=== PATIENT | male | born 1955 | race Caucasian/White ===

== ENCOUNTER 2019-12-27 08:26 | Outpatient (CLI) | payer SELFPAY ==
[2019-12-27 09:13] VITALS: BMI 27.6
--- NOTE | 2019-12-27 09:13 | ECG_ITS ---
NAME OF STUDY: EXERCISE SESTAMIBI STRESS TEST INDICATION: [Chest Pain] Please note that this is a electrocardiogram portion of the Treadmill sestamibi stress test. Perfusion imaging will be documented on a separate report. Data At baseline heart rate was noted to be 66 bpm. Baseline blood pressure noted to be 140/104 Patient exercised for on a 9 min on standard [facility] protocol. Maximum Heart rate achieved was 141 which was 89% of 158. Then maximum blood pressure achieved was 179/83 mmHg. Max METS 10.2 Reason for, ending this test was achieving target heart rate. Patient did not have any symptoms during this procedure Electrocardiogram Baseline normal sinus rhythm with no ST changes. Exercise EKG at peak exercise reveals normal sinus tachycardia with nonspecific ST changes . No significant cardiac arrhythmias noted. Conclusions 1. Electrocardiographic component of this cardiac stress test is negative for cardiac ischemia 2. Normal Heart rate blood pressure response 3. Please see separate report for report for the myocardial perfusion imaging Electronically Signed On 12-27-2019 11:38:59 CDT by Alix Tate [email or web address]
--- NOTE | 2019-12-27 09:14 | NMCV_ITS ---
NM arabella perf SPECT r/s* [id number] Josh Rodriguez Age: 64 Gender: M : 1955 Exam Date: 12/27/2019 09:14 Ordering Phys: Bernard Joseph MD Technologist: EVANGELIST Chaudhary Exam Location: [facility] Indications: CHEST PAIN STRESS TEST Please see separate stress test report in [facility] for full findings IMAGE PROTOCOL Rest/Stress 1 Exercise Day Radiopharmaceutical Dose (mCi) Administration Site Administered by Rest: Tc-99m 10.8 IV EVANGELIST Jones Sestamibi Stress:Tc-99m 32.5 IV EVANGELIST Jones Sestamibi Rest: 27-Dec-2019 60 Discovery 630 Stress: 27-Dec-2019 30 Discovery 630 Radiopharmaceutical was injected at 87 % maximum heart rate. Images obtained in supine and prone position. SPECT RESULTS Technical Quality: Excellent Raw Data Analysis: Normal Image Corrections: No attenuation or motion correction applied Summed Stress Score: 3 Summed Rest Score: 8 Summed Difference Score: 0 PERFUSION FINDINGS Small sized perfusion abnormality of mild severity of mid septal, apical septal, apical lateral apical inferior and apical wall on rest images with improved tracer uptake on stress images. This is suggestive of attenuation artifact. FUNCTIONAL RESULTS (calculated via Gated SPECT) Stress Image LV EF (%): 84 Stress EDV (mL):63 TID: 0.82 Stress ESV (mL):10 FUNCTIONAL FINDINGS: The left ventricle is normal in size. Transient Ischemia Dilatation of 0.82. There is hyperdynamic left ventricular global systolic function. The left ventricular ejection fraction is normal with a value of 84%. There is hyperdynamic left ventricular wall thickening. Normal end-diastolic and end-systolic volumes. IMPRESSIONS 1. Myocardial perfusion imaging is normal. Attenuation artifact noted in mid to apical septal and apical green. 2. Overall left ventricular systolic function is normal without regional wall motion abnormalities. 3. The left ventricular ejection fraction is hyperdynamic with a value of 84%. 4. Scan indicates low risk for cardiac events. Mami Jordan MD (Electronically Signed) Final Date: 28 December 2019 17:25 S
--- NOTE | 2019-12-27 10:45 | SUR.PREOP ---
Patient reports no pain or discomfort prior to the start of the procedure.
[2019-12-27 11:04] VITALS: BP 144/85; PULSE 95
== END 2019-12-27 08:27 | disposition home or self-care (01) ==
PROVIDERS: Family Provider Family Medicine; PCP Family Medicine; Visit Provider Family Medicine
DX: R07.9 Chest pain, unspecified (principal)
CPT/HCPCS: 78452; 93017; A9500

== ENCOUNTER 2020-01-07 08:02 | Outpatient (CLI) | payer SELFPAY ==
--- NOTE | 2020-01-07 08:21 | CT_ITS ---
WS: [id number] CT CHEST TECHNIQUE: Contrast enhanced CT of the chest with coronal and sagittal reformatted images. CLINICAL INFORMATION: CHEST PAIN COMPARISON: None. DLP: 797.[address] scans at [facility] use at least one of these dose optimization techniques: automat ed exposure control; mA and/or kV adjustment per patient size (includes targeted exams where dose is matched to clinical indication); or iterative reconstruction. FINDINGS: Mild chronic emphysematous changes. A few micronodular tree-in-bud opacities in the right upper lobe posteriorly and right middle lobe can be seen with infectious or inflammatory bronchiolitis. No focal pneumonia. No consolidation or pleural fluid. Normal caliber thoracic aorta. Proximal main pulmonary arteries are normal. A few tiny nodules in the right thyroid gland. No axillary lymphadenopathy. Adrenal glands are normal. Right hepatic cyst mark uring 1.[address]/CT chest w con* [id number] IMPRESSION: 1. A few tree-in-bud opacities in right upper lobe posteriorly and right middl e lobe likely inflammatory and can be seen with bronchiolitis. 2. No focal pneumonia. 3. No pleural fluid. 4. No mediastinal or hilar lymphadenopathy. 5. Right hepatic cyst measuring 1.4 CM.
[2020-01-07 09:10] LABS: Blood Urea Nitrogen 17 mg/dL (8-23); Glomerular Filtration Rate 85.5 mL/min (90-130)
[2020-01-07] MEDS: iohexol 300 mg/mL 100 mL Btl IV (09:17)
== END 2020-01-07 08:03 | disposition home or self-care (01) ==
LOC: RADWPI 08:05
PROVIDERS: Family Provider Family Medicine; PCP Family Medicine; Visit Provider Family Medicine
DX: R07.9 Chest pain, unspecified (principal); K76.89 Other specified diseases of liver
CPT/HCPCS: 71260; 82565; 84520; Q9967

== ENCOUNTER 2022-02-23 08:42 | Outpatient (CLI) | payer MEDICARE, SELFPAY ==
--- NOTE | 2022-02-23 08:58 | XRR_ITS ---
PROCEDURE INFORMATION: Exam: XR Right Knee Exam date and time: 02/23/2022 9:01 AM Age: 66 years old Clinical indication: Pain; Knee; Right; Additional info: R knee pain TECHNIQUE: Imaging protocol: XR Right knee. Views: 1 or 2 views. COMPARISON: No relevant prior studies available. 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 Soft tissues: Normal. 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
== END 2022-02-23 08:43 | disposition home or self-care (01) ==
PROVIDERS: PCP Family Medicine; Visit Provider Family Medicine
DX: M17.11 Unilateral primary osteoarthritis, right knee (principal); M25.561 Pain in right knee
CPT/HCPCS: 73560

== ENCOUNTER 2022-03-12 06:41 | Outpatient (CLI) | payer MEDICARE, SELFPAY ==
--- NOTE | 2022-03-12 | US_ITS ---
WS: [id number] ULTRASOUND ABDOMEN LIMITED CLINICAL INFORMATION: LIPOMA ON ABD WALL COMPARISON: None. FINDINGS: Echogenic lipoma RIGHT lateral flank area of concern measuring 6.1 x 2.3 x 6.1 CM. No other suspiciou s abnormality. US/US abdomen limited [id number] IMPRESSION: Lipoma in the area of concern described above
== END 2022-03-12 06:42 | disposition home or self-care (01) ==
LOC: RAD 06:42
PROVIDERS: PCP Family Medicine; Visit Provider Family Medicine
DX: D17.79 Benign lipomatous neoplasm of other sites (principal)
CPT/HCPCS: 76705

== ENCOUNTER → 2022-12-16 08:24 | Outpatient (BNVA) | payer MEDICARE, SELFPAY | PROVIDERS: PCP Family Medicine; Visit Provider Clinical Nurse Specialist Adult Health | DX: J00 Acute nasopharyngitis [common cold] (principal) | CPT/HCPCS: 87880 ==